=== PATIENT | male | born 1970 | race Caucasian/White ===

== ENCOUNTER 2017-10-02 17:59 | Emergency (ER) | payer SELFPAY ==
[2017-10-02] MEDS ORDERED: ASPIRIN 81 MG CHEW TAB PO ONE (18:08)
[2017-10-02] MEDS ORDERED: MAG HYDROX/ALUMINUM HYD/SIMETH 30 ML, Lidocaine 2%Visc 15ml 20 MG, PHENobarb/HYOSCY/ATR... PO ONE ×3 (18:08)
[2017-10-02] MEDS ORDERED: Lidocaine 2%Visc 15ml 20 MG/ML UDC ONE (18:11)
[2017-10-02] MEDS ORDERED: MAG HYDROX/ALUMINUM HYD/SIMETH 30 ML UDC PO ONE (18:11)
--- NOTE | 2017-10-02 18:22 | ED Physician Documentation ---
General Adult - HISTORIAN Historian: patient - HPI Chief Complaint: Chest Pain Additional Information: Patient states that this afternoon he has been having some discomfort in the epigastric area with radiation into the left anterior chest area. No precipitating factor noted. Patient did have some spicy food for lunch. Discomfort has been off and on this afternoon. At it's peak was a 3/10, now 1/ 10. No modifying factors noted. No change with drinking water or movement. Has had similar pain twice before related to GERDs. Has been having some mild indigestion over the last few days. Has not taken anything for it. No nausea or vomiting noted. Has been lightheaded some today and has had some mild diaphoresis. No previous cardiac history noted. Patient does not smoke but does chew some. Has had his cholesterol checked and has been elevated some, no history of HTN. He is not taking any medications for chronic medical problems. Onset: hours Timing: still present Severity: mild - ROS CONST: no problems CVS/RESP: chest pain, shortness of breath (mild) GI/: abdominal pain (mild epigastric pain). denies: vomiting, nausea, diarrhea, black stools MS/SKIN/LYMPH: none - PAST HX Past History: none Other History: none Surgeries/Procedures: none Immunizations: referred to PCP Allergies/Adverse Reactions: Allergies Allergy/AdvReac Type Severity Reaction Status Date / Time No Known Allergies Allergy Verified 10/02/17 18:24 Home Medications: Ambulatory Orders Medication Instructions Recorded NK [NK] 10/02/17 - SOCIAL HX Smoking History: non-smoker, chew Alcohol Use: occasionally (1 beer 3-4 days a week) Drug Use: none - FAMILY HX Family History: No - REVIEWED ASSESSMENTS Nursing Assessment Reviewed: Yes Vitals Reviewed: Yes Progress - Progress Progress: 18:22 Patient is pain free at this time. ED Results Lab/Radiology - Orders Orders: ED Orders Category Date Time Status Continuous EKG monitoring Q30M Care 10/02/17 18:08 Ordered Continuous Pulse Oximetry Q30M Care 10/02/17 18:[address] IV Lock 1T Care 10/02/17 18:08 Ordered CBC/PLATELET/DIFF Routine Lab 10/02/17 18:08 Ordered CMP Routine Lab 10/02/17 18:08 Ordered TROPONIN I (cTnI) Stat Lab 10/02/17 18:08 Ordered Aspirin Med 10/02/17 18:08 Once 324 mg PO NOW ONE MYLANTA 30 ML,LIDOCAINE HCL 20 ML, 10ML Med 10/02/17 18:08 Ordered Mag Hydrox/Aluminum Hyd/Simeth [Mylanta] 30 ml Lidocaine 2%Visc 15ml [Xylocaine] 20 ml PHENobarb/HYOSCY/ATROPINE/SCOP [] 10 ml PO NOW EKG WITH COMPARISON Stat Ther 10/02/17 18:08 Ordered General Adult Physical Exam - PHYSICAL EXAM GENERAL APPEARANCE: mild distress EENT: eye inspection normal, ENT inspection normal, pharynx normal, no signs of dehydration NECK: normal inspection, thyroid normal, supple. No: lymphadenopathy, stiff neck RESPIRATORY: no resp distress, chest non-tender, breath sounds normal. No: wheezes, rales, rhonchi CVS: reg rate & rhythm, heart sounds normal, equal pulses, no murmur, no gallop ABDOMEN: soft, normal bowel sounds, no distension, tenderness (mild epigastric tenderness) BACK: normal inspection, no CVA tenderness SKIN: warm/dry, normal color EXTREMITIES: no edema NEURO: oriented X3, cognition normal Discharge Clincal Impression: Atypical chest pain Referrals: Primary Doctor,No [Primary Care Provider] - 2 Days Condition: Stable Disposition: 01 HOME, SELF-CARE Decision to Admit: NO Date of Decison to Admit: 10/12/17 Decision Time: 12:49
[2017-10-02 18:38] LABS: MEAN CORPUSCULAR HEMOGLOBIN 30.8 pg (28.0-34.0); MEAN CORPUSCULAR VOLUME 92.6 fl (80.0-100.0)
[2017-10-02 18:40] LABS: BASOPHILS % 0.6 (0.0-1.5); EOSINOPHILS % 1.1 % (0.0-6.8); MONOCYTES % 4.7 % (0.0-11.0)
[2017-10-02 19:00] LABS: eGFR (African) > 60; eGFR (Non-African) > 60
[2017-10-02 20:12] VITALS: BP 136/78
--- NOTE | 2017-10-03 06:55 | Diagnostic Imaging Report ---
JAC STERN [facility] [address] [facility] [address] [address] Report Submission Date: Oct 02, 2017 7:25:23 PM CDT Patient Study Name: JOE GRAHAM Date: Oct 02, 2017 6:41:02 PM CDT Modality Type: DX Gender: M Description: CHEST : 74 Institution: [facility] Physician: JAC STERN 2 views of the chest History: CHEST PAIN STARTING TODAY - (Hx) / ITS.REASON chest pain on left side No comparison studies The heart is normal in size. Is no focal consolidation, pleural effusion or pneumothorax. No acute osseous pathology Impression: 1. No focal consolidation or pleural effusion. No pneumothorax Electronically signed on Oct 02, 2017 7:25:23 PM CDT by: Ambar SCHULER
[2017-10-06 09:35] LABS: NEUTROPHILS # 3.7 # k/uL (1.4-7.7)
== END 2017-10-02 20:00 | disposition home or self-care (01) ==
LOC: ED 17:59
DX: R07.89 Other chest pain (principal)
CPT/HCPCS: 71046; 80053; 84484; 85025; 85379; 93005; A9270; 99284; S1016